=== PATIENT | female | born 1970 | race Caucasian/White ===

== ENCOUNTER → 2018-10-19 10:07 | Day surgery (SDC) | payer BC ==
[~2018-10-19 10:07] MED LIST: Buffered Lidocaine 1% SYRIN* 1 ML/SYRINGE INTRADERM ONE; Dexamethasone IV* 4 MG/ML 1 ML (4 MG) IV SLOW PU ONE; Dexamethasone IV* 4 MG/ML 1 ML (4 MG) ONE; DiMENhydriNATE IV* 50 MG/ML VIAL IV PUSH PRN; Famotidine IV* 10 MG/ML 2 ML (20 mg) IV ONE; Famotidine IV* 10 MG/ML 2 ML (20 mg) ONE; HYDROcodone/ACETAMIN 5-325 MG* 1 TAB PO PRN; Ibuprofen TAB* 600 MG ONE; Ibuprofen TAB* 600 MG PO PRN; Lactated Ringers 1000 ML Bag* 1,000 ML IV SCH; Lidocain 1% EPI 1:100,000 * 30 ML MDV ONE; Midazolam* 1 MG/ML 5 ML VIAL (5 MG) ONE; Naloxone* 0.4 MG/ML 1 ML VIAL IV PRN; Ondansetron INJ* 2 MG/ML VIAL ONE; Phenylephrine 40 MCG/ML SYRINGE ONE; Propofol* 10 MG/ML 20 ML BTL ONE; Succinylcholine* 20 MG/ML 10 ML VIAL ONE; fentaNYL* 50 MCG/ML 2 ML VIAL (100 MCG VIAL) IV PRN; fentaNYL* 50 MCG/ML 2 ML VIAL (100 MCG VIAL) ONE; hydrALAZINE IV* 20 MG/ML VIAL ONE; oxyCODONE/Acetamin 5/325 MG* TAB PO PRN
[2018-10-19] MEDS: hydrALAZINE IV* 20 MG/ML VIAL IV SLOW PU PRN ×3 (14:19→15:02)
[2018-10-19 15:06] VITALS: BP 165/100
--- NOTE | 2018-10-19 15:15 | OP ---
DATE OF OPERATION: 10/19/18 - SDS DATE OF : 68 SURGEON: Sean Ronquillo MD. ANESTHESIA: General endotracheal. 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 POST-OP DIAGNOSIS: Neoplasm of a right submandibular gland. OPERATIVE PROCEDURE: Excision of a right submandibular gland under general endotracheal anesthesia. COMPLICATIONS: None. DISPOSITION: Good. SPECIMEN: Right submandibular gland. BLOOD LOSS: 10 mL DESCRIPTION OF PROCEDURE: The patient was taken to the operating room, placed down in the supine position on the operating table, general anesthesia was induced, and she was orotracheally intubated. She was positioned for the surgery, incision was demarcated 2 fingerbreadths below the inferior aspect of the mandible and injected with 1% lidocaine with 1:100,000 epinephrine. She was prepped with Betadine, draped in sterile fashion. Incision was made through the skin, and then a crossclamp and cut and pull technique was used to elevate the platysma muscle and the facia off of the lateral aspect of the gland. I used a combination of blunt dissection bipolar technique and came around the inferior aspect of the gland. The tumor was found in the inferior aspect here. I elevated the gland off the underlying muscles, tied off the vessel branches to it. I tied off the duct and released the lingual nerve and tied off the branch to the gland and removed it. Hemostasis was ensured. The wound was irrigated with saline. The wound was closed with 3-0 deep dermal Vicryls and a running subcuticular Prolene, Mastisol, and Steri-Strips. The patient tolerated this procedure well, no complications. Transferred to the recovery room in stable condition. [id number]/[facility] #: [id number] [facility]
== END | disposition home or self-care (01) ==
LOC: OR 10:07
PROVIDERS: ATTEND Otolaryngology
DX: D11.7 Benign neoplasm of other major salivary glands (principal); I10 Essential (primary) hypertension; J30.2 Other seasonal allergic rhinitis
CPT/HCPCS: 81025; 88307; A9270-GY; J0330; J0360; J1100; J2250; J2405; J2704; J3010